=== PATIENT | female | born 1955 | race Caucasian/White ===

== ENCOUNTER 2019-10-16 16:26 | Emergency (ER) | payer MEDICARE, OTHER, SELFPAY ==
[2019-10-16 16:36] VITALS: BP 125/79; PULSE 100; RESP 20; TEMP 37.4; O2SAT 100
--- NOTE | 2019-10-16 17:08 | ED.GENADULT ---
HPI - General Adult General Chief complaint: Extremity Injury, Lower Stated complaint: left leg swelling Time Seen by Provider: 10/16/19 17:11 Source: patient and RN notes reviewed Mode of arrival: ambulatory Limitations: no limitations History of Present Illness HPI narrative: Patient presents today complaining of redness and swelling to her left lower leg x1 week. Reports the symptoms have significantly improved since onset, and only slightly itch right now. History of DVT in the right leg for which she has a filter. She does not currently take any blood thinners. She has been taking Tylenol for pain. She is currently pain-free. Denies numbness or tingling in the leg or foot. Patient does have some chronic edema in the left lower leg, after her knee replacement. States her doctor cannot tell her why she has chronic edema in her leg. She takes Lasix as well. complaint: Left lower leg redness Related Data Home Medications Medication Instructions Recorded Confirmed famotidine 20 mg PO BID 10/16/19 10/16/19 furosemide 20 mg PO DAILY 10/16/19 10/16/19 lisinopril 5 mg PO DAILY 10/16/19 10/16/19 olanzapine 5 mg PO DAILY 10/16/19 10/16/19 paroxetine HCl 20 mg PO QAM 10/16/19 10/16/19 potassium chloride 20 meq PO DAILY 10/16/19 10/16/19 Allergies Allergy/AdvReac Type Severity Reaction Status Date / Time warfarin Allergy Unknown Unknown Unverified 10/16/19 16:50 celecoxib AdvReac Unknown Ulcers Unverified 10/16/19 16:50 hydrocodone AdvReac Unknown Nausea and Unverified 10/16/19 16:50 Vomiting rofecoxib AdvReac Unknown Ulcers Unverified 10/16/19 16:50 codeine AdvReac Nausea and Verified 10/16/19 16:50 Vomiting Review of Systems Review of Systems: Narrative: CONSTITUTIONAL: Denies body aches, fever, chills, or sweats. EYES: Denies visual changes, redness, or discharge. ENT: Denies rhinorrhea, congestion, sore throat, or otalgia. CARDIOVASCULAR: Denies chest pain, palpitations, or edema. RESPIRATORY: Denies cough or dyspnea. GASTROINTESTINAL: Denies abdominal pain, nausea, vomiting, or diarrhea. GENITOURINARY: Denies dysuria or hematuria. SKIN: Denies rash, itching, or wounds. Left lower leg redness and swelling MUSCULOSKELETAL: Denies back pain, joint pain, or myalgia. NEUROLOGIC: Denies headache, numbness, tingling, or weakness. PSYCH: Denies depression or anxiety. [facility] Past Medical History Medical History (Updated 10/16/19 @ 17:31 by Katt Tejeda, [facility], ) DVT (deep venous thrombosis) GERD (gastroesophageal reflux disease) Hypertension Surgical History Surgical History (Updated 10/16/19 @ 17:31 by Katt Tejeda, [facility], ) History of left knee replacement Comments At time of signature, I have reviewed and agree with nursing past medical, surgical, social and family history unless otherwise noted. Please see nursing chart for further information. There is no relevant family history pertinent to the presenting complaint Exam Narrative: Exam Narrative: GENERAL: Well-appearing, well-nourished, and in no acute distress. HEAD: Normocephalic, atraumatic. EYES: EOMI. No redness or drainage. Conjunctivae normal. ENT: Mucous membranes pink and moist. NECK: Normal AROM. CHEST: No respiratory distress. EXTREMITIES: Left leg: mild redness to the anterior and medial lower leg. 1+ pitting edema to the lower leg. No edema to the ankle or foot. Patient appears to have chronic edema and texture to the bilateral lower legs, left greater than right. Calf is nontender. Distal sensation intact. Capillary refill normal. Pedal pulse is strong. No discoloration of the foot. SKIN: Warm, dry, no rash. Capillary refill normal. Normal skin turgor. NEURO: No focal deficits. Alert and oriented x3. Gait steady. PSYCH: Normal affect. No signs of depression or anxiety. Course Vital Signs Vital signs: Vital Signs Temperature 99.3 F 10/16/19 16:36 Pulse Rate 100 10/16/19 16:36 Respiratory
== END 2019-10-16 17:12 | disposition home or self-care (01) ==
PROVIDERS: Emergency Provider Nurse Practitioner; PCP Internal Medicine Infectious Disease
DX: L03.116 Cellulitis of left lower limb (principal); Z86.718 Personal history of other venous thrombosis and embolism; Z95.828 Presence of other vascular implants and grafts; Z96.652 Presence of left artificial knee joint; I10 Essential (primary) hypertension
CPT/HCPCS: 99203; G0463